=== PATIENT | female | born 1970 ===

== ENCOUNTER 2017-02-01 12:14 | Emergency (ER) | payer BC ==
[2017-02-01 13:11] LABS: #Basophils 0.2 thou/uL (0.0-0.2); #Eosinphils 0.2 thou/uL (0.0-0.7); #Lymphocytes 1.6 thou/uL (1.20-3.40); #Monocytes 0.4 thou/uL (0.11-0.59); #Neutrophils 4.3 thou/uL (1.40-6.50); %Basophils 2.4 % (0.0-1.0); %Eosinophils 3.3 % (0.0-10.0); %Lymphocytes 23.3 % (21.0-51.0); %Monocytes 6.3 % (0.0-10.0); Hematocrit 38.3 % (36.0-47.0); Red Blood Cell (RBC) Count 4.07 mill/uL (4.20-5.40); White Blood Cell (WBC) Count 6.7 thou/uL (4.8-10.8)
[2017-02-01 13:25] LABS: ALT (SGPT) 14 U/L (8-55); AST (SGOT) 16 U/L (5-34); Alkaline Phosphatase 58 U/L (40-150); Anion Gap 12 mmol/L (10-20); BUN (Urea Nitrogen) 13 mg/dL (7.0-18.7); Bilirubin, Total 0.4 mg/dL (0.2-1.2); Calc. Creatinine Clearance 0 mL/min (70-130); Calcium 9.2 mg/dL (7.8-10.44); Carbon Dioxide 24 mmol/L (22-29); Chloride 106 mmol/L (98-107); Estimated GFR-MDRD 84; Globulin 2.8 g/dL (2.4-3.5); Protein, Total 6.6 g/dL (6.0-8.3)
[2017-02-01 13:28] LABS: Troponin I Less than 0.010 ng/mL (< 0.028)
--- NOTE | 2017-02-01 13:34 | RAD ---
AP CHEST: History: Shortness of breath, chest pain. IMPRESSION: No acute cardiopulmonary abnormality. COMMENTS: No comparisons are available. Lungs are clear. Cardiomediastinal silhouette is within normal limits. No acute osseous abnormalities evident. POS: VANDANAH
== END 2017-02-01 14:51 | disposition home or self-care (01) ==
LOC: SCSER 12:14
DX: R07.89 Other chest pain (principal)
CPT/HCPCS: 36415; 71010; 80053; 82553; 83880; 84484; 85025; 93005

== ENCOUNTER 2017-04-13 15:35 | Outpatient (CLI) | payer OTHER | END 2017-04-13 15:36 | disposition home or self-care (01) | LOC: BICMAMMO 15:35 | PROVIDERS: ATTEND Obstetrics & Gynecology | DX: Z12.31 Encounter for screening mammogram for malignant neoplasm of breast (principal) | CPT/HCPCS: 77063; 77067 ==

== ENCOUNTER 2018-04-26 16:02 | Outpatient (CLI) | payer OTHER ==
--- NOTE | 2018-04-27 10:48 | MMO ---
Bilateral MAMMO Bilat Screen [facility]. CLINICAL HISTORY: Patient is 47 years old and is seen for screening. The patient has no family history of breast cancer. The patient has no personal history of cancer. VIEWS: The views performed were: bilateral craniocaudal with tomosynthesis and bilateral mediolateral oblique with tomosynthesis. FILMS COMPARED: The present examination has been compared to prior imaging studies performed at [facility] on 03/05/2010, 03/11/2011, 09/05/2012, 09/20/2013, 10/15/2014, 11/02/2015 and 04/13/2017. MAMMOGRAM FINDINGS: The breasts are heterogeneously dense, which could obscure a lesion on mammography. There are no suspicious masses, calcifications or areas of architectural distortion. IMPRESSION: THERE IS NO MAMMOGRAPHIC EVIDENCE OF MALIGNANCY. A ROUTINE FOLLOW-UP MAMMOGRAM IN 1 YEAR IS RECOMMENDED. THE RESULTS OF THIS EXAM WERE SENT TO THE PATIENT. ACR BI-RADS Category 1 - Negative MAMMOGRAPHY NOTE: 1. A negative mammogram report should not delay a biopsy if a dominant of clinically suspicious mass is present. 2. Approximately 10% to 15% of breast cancers are not detected by mammography. 3. Adenosis and dense breasts may obscure an underlying neoplasm.
== END 2018-04-26 16:03 | disposition home or self-care (01) ==
LOC: BICMAMMO 16:02
PROVIDERS: ATTEND Family Medicine
DX: Z12.31 Encounter for screening mammogram for malignant neoplasm of breast (principal)
CPT/HCPCS: 77063; 77067

== ENCOUNTER 2018-07-20 14:40 | Outpatient (CLI) | payer OTHER ==
--- NOTE | 2018-07-20 15:18 | RAD ---
Exam: 2 views of lumbar spine HISTORY: Bilateral hip pain. Low back pain. FINDINGS: 5 lumbar type vertebral bodies. Moderate loss of disc space height at the lumbosacral junct ion. Remaining disc space heights are preserved. No fracture No spondylolisthesis or spondylolysis. Right paraspinal surgical clips are noted IMPRESSION: Moderate loss of disc space height at L5-S1.
--- NOTE | 2018-07-20 15:19 | RAD ---
Exam:2 views left hip HISTORY: Pain COMPARISON: None FINDINGS: Contour of the femoral head is maintained. Joint spaces preserved. No fracture. IMPRESSION: Unremarkable left hip 2 views
--- NOTE | 2018-07-20 15:19 | RAD ---
Exam:2 views right hip HISTORY: Pain COMPARISON: None FINDINGS: Contour of the femoral head is maintained. Hip joint spaces preserved. IMPRESSION: Unremarkable 2 views right hip.
== END 2018-07-20 14:41 | disposition home or self-care (01) ==
LOC: SCSRAD 14:40
PROVIDERS: ATTEND Nurse Practitioner Family
DX: M54.5 Low back pain (principal); M25.551 Pain in right hip; M25.552 Pain in left hip; M51.87 Other intervertebral disc disorders, lumbosacral region
CPT/HCPCS: 72100

== ENCOUNTER 2020-12-17 15:42 | Outpatient (CLI) | payer OTHER | END 2020-12-17 15:43 | disposition home or self-care (01) | LOC: BICMAMMO 15:42 | PROVIDERS: ATTEND Nurse Practitioner Family | DX: Z12.31 Encounter for screening mammogram for malignant neoplasm of breast (principal) | CPT/HCPCS: 77063; 77067 ==

== ENCOUNTER 2021-12-17 15:19 | Outpatient (CLI) | payer BC | END 2021-12-17 15:20 | disposition home or self-care (01) | LOC: BICMAMMO 15:19 | PROVIDERS: ATTEND Family Medicine | DX: Z12.31 Encounter for screening mammogram for malignant neoplasm of breast (principal) | CPT/HCPCS: 77063; 77067 ==

== ENCOUNTER 2023-03-30 13:18 | Outpatient (CLI) | payer BC | END 2023-03-30 13:19 | disposition home or self-care (01) | LOC: BICMAMMO 13:18 | PROVIDERS: ATTEND Internal Medicine | DX: Z12.31 Encounter for screening mammogram for malignant neoplasm of breast (principal) | CPT/HCPCS: 77063; 77067 ==